=== PATIENT | female | born 1945 ===

== ENCOUNTER 2018-01-20 12:54 | Inpatient (IN) | payer MEDICARE ==
[~2018-01-20] VITALS: Ht 152.4 cm; Wt 72.3 kg
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
--- NOTE | ~2018-01-20 | PN ---
[place], [place] PROGRESS NOTE NAME: VIRGIL BUSTILLO UNIT #: [id number] ROOM: 315 DOCTOR: CHIDI HU MD BIRTHDATE: [birth year] DATE: 01/24/18 ADDENDUM 03/19/[address] HU: Above note reviewed. Agree with observations, recommendations, and overall treatment plan. CHIDI HU MD CM:PNTRANS 3 08 CHIDI HU MD 03/19/18801 ANGELICA HULL MIS.LLR
--- NOTE | ~2018-01-20 | PN ---
[place], [place] PROGRESS NOTE NAME: VIRGIL BUSTILLO UNIT #: [id number] ROOM: 315 DOCTOR: CHIDI HU MD BIRTHDATE: [birth year] DATE: 02/05/18 ADDENDUM 03/19/18803 DR. HU: Above note reviewed. Agree with observations, recommendations, and overall treatment plan. CHIDI HU MD CM:PNTRANS 3 4 CHDII HU MD 03/19/18804 ANGELICA HULL MIS.LLR
--- NOTE | ~2018-01-20 | PN ---
[place], [place] PROGRESS NOTE NAME: VIRGIL BUSTILLO UNIT #: [id number] ROOM: 315 DOCTOR: CHIDI HU MD BIRTHDATE: [birth year] DATE: 01/29/18 ADDENDUM 03/19/18803 DR. HU: Above note reviewed. Agree with observations, recommendations, and overall treatment plan. CHIDI HU MD CM:PNTRANS 3 2 CHIDI HU MD 03/19/18802 ANGELICA HULL MIS.LLR
--- NOTE | ~2018-01-20 | PR ---
[place], [place] PROGRESS NOTE NAME: VIRGIL BUSTILLO UNIT #: [id number] ROOM: 315 DOCTOR: ALONA JOHNSON MD BIRTHDATE: [birth year] DOS: 02/03/2018 SUBJECTIVE: The patient seen and spoke with the staff. Per staff, the patient is doing well. No behavioral problems or issues. Took her medications. Still some psychosis. The patient was pleasant and cooperative. She was in the day area. She reports doing good. Denied any problem with sleep or appetite. She said that she is taking her medication regularly and did not have any side effect from the medication. MENTAL STATUS EXAMINATION: Pleasant and cooperative. Described her mood as "good." Affect, mood congruent. Thought process goal directed. No flight of ideas, loosening of association. She denied auditory or visual hallucination. No overt delusion or paranoia noted. She denied suicidal ideation, intent, or plan. She also denied homicidal ideation, intent, or plan. PLAN: 1. Continue current medication and care. 2. Continue redirection. 3. Supportive care. 4. Encourage activities in groups. 5. Final medication management and discharge plan by the regular team. ALONA JOHNSON MD CM:PNTRANS [phone] ALONA JOHNSON MD 02/04/18 0539 interface
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
--- NOTE | ~2018-01-20 | PN ---
[place], [place] PROGRESS NOTE NAME: VIRGIL BUSTILLO UNIT #: [id number] ROOM: 315 DOCTOR: CHIDI HU MD BIRTHDATE: [birth year] DATE: 02/06/18 ADDENDUM 03/19/18803 DR. HU: Above note reviewed. Agree with observations, recommendations, and overall treatment plan. CHIDI HU MD CM:PNTRANS 3 2 CHIDI HU MD 03/19/18803 ANGELICA HULL MIS.LLR
--- NOTE | ~2018-01-20 | PR ---
[place], [place] PROGRESS NOTE NAME: VIRGIL BUSTILLO UNIT #: [id number] ROOM: 315 DOCTOR: CHIDI HU MD BIRTHDATE: [birth year] DOS: 01/28/2018 INTERVAL NOTE CHIEF COMPLAINT: "I'm not crazy, why don't you just call Sheriff [place]ell." SUMMARY OF THE VISIT: The patient was interviewed first before we went to the court hearing for her probate hearing. She minimized any issues during my initial conversation with her. 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 She most recently states that she was placed in a motel in [place] to monitor drug trafficking there. She very angrily chastised the event services manager stating that we needed to verify this with Kory Vences from the [facility]. She was very delusional and very upset. However, she did keep it under control and that she did not become physically aggressive towards anyone. MENTAL STATUS: She is alert and oriented with time gaps. Mood does seem to be still labile. Affect is inappropriate. She remains grossly delusional and very paranoid. PLAN: I will try to load her with Invega Sustenna 234 mg IM on 01/29/2018. We are still awaiting emergency guardianship. If this occurs and the patient refuses the IM, we will defer then to the guardian's position as to whether or not force medicine is advantageous or not. CHIDI HU MD CM:PNTRANS [phone] CHIDI HU MD 01/28/18 2248 interface
--- NOTE | ~2018-01-20 | PR ---
[place], [place] PROGRESS NOTE NAME: VIRGIL BUSTILLO UNIT #: [id number] ROOM: 315 DOCTOR: ALONA JOHNSNO MD BIRTHDATE: [birth year] DOS: 02/01/2018 PSYCHIATRIC PROGRESS NOTE SUBJECTIVE: The patient was seen and spoke with the staff. Per staff, the patient is still delusional, not taking medication. No behavior problems or issues. The patient was pleasant and cooperative. She was in her room. She said that she is doing "fine." She denied any mood or psychotic symptoms. She reported good sleep and appetite. MENTAL STATUS EXAMINATION: Pleasant, cooperative. Described her mood as "fine." Affect and mood congruent. Thought process goal directed. Disorganized time with a delusion. She denied auditory or visual hallucination, but seems to be responding to stimuli. She is paranoid. She denies suicidal ideation, intent or plan. She also denied homicidal ideation, intent or plan. Insight and judgment impaired. PLAN: 1. Continue current medication and care. 2. Continue redirection. 3. Supportive care. 4. Encourage activity in groups. ALONA JOHNSON MD CM:PNTRANS [id number] ALONA JOHNSON MD 02/03/18 1640 interface
--- NOTE | ~2018-01-20 | PR ---
[place], [place] PROGRESS NOTE NAME: VIRGIL BUSTILLO UNIT #: [id number] ROOM: 315 DOCTOR: CHIDI HU MD BIRTHDATE: [birth year] DOS: 02/04/2018 INTERVAL NOTE CHIEF COMPLAINT: "I do have a place to go. I don't know why you people don't believe me." SUMMARY OF THE VISIT: The patient was interviewed in the back end of the dining area where she sat on a couch. She engaged readily in conversation. She continues to report that she does have a place to go post-discharge. When I told her that we were informed this is not the case, she became very irate with me. She continues to be very much delusional and fixed in her believes. She is episodically compliant with her medications. She is not exhibiting, however, any side effects from them whatsoever. MENTAL STATUS: She is alert and oriented with time gaps. Mood does seem to be rather labile still and she turns on a dime as far as becoming very irritable and aggressive. She is grossly delusional still. PLAN: I will maintain her current psychotropic regimen. Still awaiting the final emergency guardianship paperwork to come through, so that we can potentially force an intermuscular long-acting decanoate prep, so that her blood levels maintain better and we can break the psychosis. Also, looking to discharge then into a long-term care community where she can have supervision and have her medicines and meals monitored. CHIDI HU MD CM:PNTRANS [phone] CHIDI HU MD 02/04/181934 interface
--- NOTE | ~2018-01-20 | PR ---
[place], [place] PROGRESS NOTE NAME: VIRGIL BUSTILLO UNIT #: [id number] ROOM: 315 DOCTOR: CHIDI HU MD BIRTHDATE: [birth year] DOS: 02/01/2018 CHIEF COMPLAINT: "I hope my diary is over." SUMMARY OF THE VISIT: The patient was interviewed as she sat at the end of the dining area. She engaged readily in very superficial conversation. Of note, she did not voice any conversation surrounding being part of the task force or that I was part of the coalition. She rather was more goal directed with things that were happening here and now. Nurses report that yesterday she had a flareup of symptoms and even plan for a moment that there was something with the water and that the water here was being tampered with. She has been episodically compliant with her medications and at least has been taking the oral Invega. She at times will identify the Exelon capsules and will refuse them. MENTAL STATUS: She is alert and oriented with significant time gaps. Mood does seem to be relatively euthymic. There are some anxious overtones and she is somewhat fretful. There is no hypomania or marcelino. I did not elicit any psychotic symptoms, but she was somewhat guarded and not forthcoming with her symptoms. PLAN: At the present time is to maintain her current psychotropics. I will not try to force an injection at this time as she is refusing it. We are still awaiting guardianship. If the guardianship comes through, I will talk to them about the possibility of instituting an Invega Sustenna, so that we can improve her overall compliance with medication and break the psychosis more effectively. CHIDI HU MD CM:PNTRANS [phone] CHIDI UH MD 02/01/18 1441 interface
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
--- NOTE | ~2018-01-20 | PN ---
[place], [place] PROGRESS NOTE NAME: VIRGIL BUSTILLO UNIT #: [id number] ROOM: 315 DOCTOR: CHIDI HU MD BIRTHDATE: [birth year] DATE: 01/25/18 ADDENDUM 03/19/18803 DR. HU: Above note reviewed. Agree with observations, recommendations, and overall treatment plan. CHIDI HU MD CM:PNTRANS 3 2 CHIDI HU MD 03/19/18802 ANGELICA HULL MIS.LLR
--- NOTE | ~2018-01-20 | PN ---
[place], [place] PROGRESS NOTE NAME: VIRGIL BUSTILLO UNIT #: [id number] ROOM: 315 DOCTOR: CHIDI HU MD BIRTHDATE: [birth year] DATE: 01/31/18 ADDENDUM 03/19/18803 DR. HU: Above note reviewed. Agree with observations, recommendations, and overall treatment plan. CHIDI HU MD CM:PNTRANS 3 3 CHIDI HU MD 03/19/18803 ANGELICA HULL MIS.LLR
--- NOTE | ~2018-01-20 | PR ---
[place], [place] PROGRESS NOTE NAME: VIRGIL BUSTILLO UNIT #: [id number] ROOM: 315 DOCTOR: CHIDI HU MD BIRTHDATE: [birth year] DOS: 01/23/2018 INTERVAL NOTE CHIEF COMPLAINT: "I need to see better, I can't see what I'm doing." SUMMARY OF THE VISIT: The patient was interviewed as she was completing a craft in the activity room. She was gluing stars on to a flag. The patient engaged in brief conversation, denying any issues. Nurses report, she has been more compliant with her medications of late and has been more cooperative. MENTAL STATUS: She is alert and oriented to person and place, but not time. Mood does seem to be trending towards euthymia. Affect is more appropriate. There are no symptoms of marcelino or hypomania. Memory has some gaps. PLAN: I will continue her current psychotropic regimen, engage in individual and fuller milieu activity, returning to the least restrictive environment when stable. CHIDI HU MD CM:PNTRANS 1129 02 CHIDI HU MD 01/23/182101 interface
[2018-01-20] MEDS ORDERED: ASPIR LOW81 MG PO (13:24)
[2018-01-20 16:01] VITALS: BP 114/78
[2018-01-20 16:23] VITALS: BP 114/78
[2018-01-20 19:10] VITALS: BP 130/70
[2018-01-20 20:00] VITALS: BP 130/70
[2018-01-21 06:40] LABS: BASO # 0.1 10*3/uL (0.0-0.1); BASO % 1.3 % (0.0-1.0); EOS # 0.1 10*3/uL (0.0-0.4); EOS % 2.6 % (1.0-4.0); HEMOGLOBIN 11.8 g/dl (12.0-16.0); LYMPH # 2.1 10*3/uL (1.3-4.4); LYMPH % 44.7 % (27.0-41.0); MEAN CELL VOLUME 87.5 fl (81.0-99.0); MEAN CORPUSCULAR HGB 27.9 pg (27.0-31.0); MEAN CORPUSCULAR HGB CONC 31.9 g/dl (33.0-37.0); MEAN PLATELET VOLUME 10.2 fl (9.6-12.3); MONO # 0.4 10*3/uL (0.1-1.0); MONO % 8.3 % (3.0-9.0); NEUT % 42.9 % (47.0-73.0); PLATELET COUNT AUTOMATED 246 10*3/uL (130-400); RED BLOOD COUNT 4.23 10*6/uL (4.10-5.10); RED CELL DISTRI WIDTH 15.9 % (0-14.5); WHITE BLOOD COUNT 4.7 10*3/uL (4.8-10.8)
[2018-01-21 06:58] LABS: ALBUMIN 2.7 gm/dl (3.1-4.5); ALKALINE PHOSPHATASE 86 U/L (45-117); BUN 16 mg/dl (7-24); CHLORIDE 115 mmol/L (98-107); CHOLESTEROL 211 mg/dL (<200); CREATININE 0.83 mg/dL (0.55-1.02); HDL CHOLESTEROL 36 mg/dl (40-60); LDL CHOLESTEROL 137 mg/dL (9-159); POTASSIUM 3.5 mmol/L (3.5-5.1); SGOT/AST 29 IU/L (3-35); SGPT/ALT 31 U/L (12-78); SODIUM 151 mmol/L (136-145); TOTAL PROTEIN 5.4 gm/dL (6.4-8.2); TRIGLYCERIDES 190 mg/dl (<150); VLDL CHOLESTEROL 38 mg/dL (6-40)
[2018-01-21 07:58] VITALS: BP 111/68
[2018-01-21 08:26] LABS: VITAMIN D, 25-HYDROXY 7.4 ng/mL (30-100)
[2018-01-21 19:45] VITALS: BP 112/65
[2018-01-22 07:35] VITALS: BP 117/58
[2018-01-22 07:39] LABS: BUN 17 mg/dl (7-24); CHLORIDE 112 mmol/L (98-107); CREATININE 1.04 mg/dL (0.55-1.02); POTASSIUM 3.1 mmol/L (3.5-5.1); SODIUM 147 mmol/L (136-145)
[2018-01-22 07:43] LABS: FREE T4 0.85 ng/dl (0.76-1.46)
[2018-01-22 14:54] LABS: BILIRUBIN NEGATIVE (NEGATIVE); BLOOD NEGATIVE (NEGATIVE); CLARITY CLEAR (CLEAR); COLOR YELLOW (YELLOW); GLUCOSE NEGATIVE (NEGATIVE); KETONE NEGATIVE (NEGATIVE); LEUKO ESTERASE 2+ (NEGATIVE); NITRITE NEGATIVE (NEGATIVE); PH 5.5 (5.0-9.0); UROBILINOGEN 0.2 E.U./dl (0.2-1.0)
[2018-01-22 20:08] VITALS: BP 111/54
[2018-01-23 07:39] VITALS: BP 118/68
[2018-01-23 19:06] VITALS: BP 124/75
[2018-01-24 07:53] VITALS: BP 140/74
[2018-01-24 19:36] VITALS: BP 109/58
[2018-01-25 07:40] VITALS: BP 134/60
[2018-01-25 07:42] VITALS: BP 134/60
[2018-01-25 19:24] VITALS: BP 116/60
[2018-01-26 07:42] VITALS: BP 121/68
[2018-01-26 20:26] VITALS: BP 112/59
[2018-01-27 07:45] VITALS: BP 108/70
[2018-01-27 20:00] VITALS: BP 119/58
[2018-01-28 07:47] VITALS: BP 127/58
[2018-01-28 19:50] VITALS: BP 132/63
[2018-01-29 07:55] VITALS: BP 130/64
[2018-01-29 20:04] VITALS: BP 132/66
[2018-01-30 07:58] VITALS: BP 127/74
[2018-01-30 20:11] VITALS: BP 125/55
[2018-01-30 20:37] VITALS: BP 125/55
[2018-01-31 07:24] VITALS: BP 106/50
[2018-01-31 20:00] VITALS: BP 121/78
[2018-02-01 08:26] VITALS: BP 123/71
[2018-02-01 19:44] VITALS: BP 110/62
[2018-02-02 07:42] VITALS: BP 119/75
[2018-02-02 20:12] VITALS: BP 110/59
[2018-02-03 07:29] VITALS: BP 130/64
[2018-02-03 19:53] VITALS: BP 140/66
[2018-02-04 07:53] VITALS: BP 133/73
[2018-02-04 20:19] VITALS: BP 123/57
[2018-02-05 07:55] VITALS: BP 142/66
[2018-02-05 20:12] VITALS: BP 135/64
[2018-02-06 08:23] VITALS: BP 119/75
[2018-02-06] MEDS ORDERED: ATORVASTATIN CA20 M1 PO (10:17)
[2018-02-06] MEDS ORDERED: B121000 MCG/1 IM (10:17)
[2018-02-06] MEDS ORDERED: VITAMIN D50000 UNIT PO (10:17)
[2018-02-06] MEDS ORDERED: RIVASTIGMINE T1.5 M1 PO (10:53)
[2018-02-06] MEDS ORDERED: PALIPERIDONE ER6 MG PO (10:53)
== END 2018-02-06 11:30 | DRG 885 ==
LOC: 3N 12:54 → EDBD 15:49 → 3N 15:49
PROVIDERS: Internal Medicine; Psychiatry & Neurology Psychiatry
PROC: 0HBRXZZ Excision of Toe Nail, External Approach (ICD-10-PCS; principal; 2018-02-01)
DX: F23 Brief psychotic disorder (principal); E43 Unspecified severe protein-calorie malnutrition; E87.0 Hyperosmolality and hypernatremia; D72.810 Lymphocytopenia; D64.9 Anemia, unspecified; B35.1 Tinea unguium; R73.9 Hyperglycemia, unspecified; E78.2 Mixed hyperlipidemia; E55.9 Vitamin D deficiency, unspecified; E66.9 Obesity, unspecified; Z91.14 Patient's other noncompliance with medication regimen; Z98.51 Tubal ligation status; Z68.31 Body mass index [BMI] 31.0-31.9, adult; Z79.82 Long term (current) use of aspirin

== ENCOUNTER 2019-03-21 20:07 | Inpatient (IN) | payer MEDICARE, MEDICAID ==
[~2019-03-21] VITALS: Ht 152.4 cm; Wt 75.8 kg
[~2019-03-21 20:07] MED LIST: ASPIR LOW81 MG PO; ATORVASTATIN CA20 M1 PO; B121000 MCG/1 IM; PALIPERIDONE ER6 MG PO; RIVASTIGMINE T1.5 M1 PO; VITAMIN D50000 UNIT PO
[2019-03-21] MEDS ORDERED: Synthroid,Levo50 MCG PO (20:23)
--- NOTE | 2019-03-22 02:11 | NUR ---
KENYVIRGIL a 74 year old F admitted via ambulance from the [facility] as a emergency 72 hr. hold admission. Arrived on unit at 0211. ALLERGIES: NKA. Vital signs are: 97.3-92-18 136/68. The client signed the following forms with stated understanding: Authorization For The Release of Medical Information, Clothing List, Consent and Release Forms/Receipt of Rights, Acknowledgement of Advance Directive Information, Behavioral Health Consent Form, and Informed Consent of Medications. Admitted under the services [facility]. A search was conducted and hazardous articles were removed. Client was oriented to the unit. PATIENT DID NOT SIGN VOLUNTARY ADMISSION DUE TO PINKSLIP STATUS. ROSENDO BARRY PATIENT ALERT TO PERSON AND APPROXIMATE PLACE; CONFUSION AND ST/LT MEMORY DEFICITS NOTED. ESCORTED ON UNIT VIA SCRETCHER BY ASI AND SECURITY. CALM AND COOPERATIVE WITH ADMISSION AND INTERVIEW QUESTIONS.
--- NOTE | 2019-03-22 02:15 | NUR ---
Called and notified Dr. Nguyen regarding patient being admitted to floor and asked which hospitalist to place order of consult under. Dr. Nguyen said to place the order under Dr. Loera.
[2019-03-22 02:33] VITALS: BP 136/68
[2019-03-22 02:37] VITALS: BP 136/68
--- NOTE | 2019-03-22 02:40 | NUR ---
DR. JENNINGS ON FLOOR TO ASSESS PT, UPDATE PROVIDED.
--- NOTE | 2019-03-22 03:39 | NUR ---
DR. BARRON NOTED OF URINE RESULTS FROM [facility] AND PRESCRIPTION OF KEFLEX SENT FROM [facility] TO BE STARTED HERE. DR. BARRON STATED TO GET A NEW URINE AND WILL BE TREATED ACCORDINGLY THEN.
--- NOTE | 2019-03-22 06:06 | NUR ---
PATIENT MONITORED ON Q15 MINUTE CHECKS THROUGHOUT THE NIGHT. PT NOTED TO HAVE SLEPT APPROXIMATELY 1.5 HOURS. PATIENT DID NOT GO TO SLEEP UNTIL AROUND 0330 DUE TO GETTING ADMITTED SO LATE.
[2019-03-22 07:38] LABS: ALBUMIN 3.5 gm/dl (3.1-4.5); ALKALINE PHOSPHATASE 84 U/L (45-117); BUN 20 mg/dl (7-24); CHLORIDE 109 mmol/L (98-107); CHOLESTEROL 198 mg/dL (<200); CREATININE 0.98 mg/dL (0.55-1.02); HDL CHOLESTEROL 51 mg/dl (40-60); LDL CHOLESTEROL 117 mg/dL (9-159); SGOT/AST 11 IU/L (3-35); SGPT/ALT 25 U/L (12-78); SODIUM 141 mmol/L (136-145); TOTAL PROTEIN 6.6 gm/dL (6.4-8.2); TRIGLYCERIDES 152 mg/dl (<150); VLDL CHOLESTEROL 30 mg/dL (6-40)
[2019-03-22 07:55] VITALS: BP 121/49
[2019-03-22 08:05] LABS: VITAMIN D, 25-HYDROXY 17.5 ng/mL (30-100)
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
--- NOTE | 2019-03-22 12:19 | NUR ---
AM GROUP/EXERCISES/BINGO! PT CHOSE NOT TO ATTEND OR PARTICIPATE IN GROUP BUT TO REMAIN IN BED SLEEPING AT THIS TIME. PT WILL CONTINUE TO BE ENCOURAGED TO ATTEND AN DPARTICIPATE IN FUTURE GROUP SESSIONS.
--- NOTE | 2019-03-22 15:46 | NUR ---
PM GROUP/ART/FOOTBALL PT RESTING IN BED AT THIS TIME. PT CHOSE NOT TO ATTEND GROUP AND WILL CONTINUE TO BE ENCOURAGED TO ATTEND AND PARTICIPATE IN FUTURE GROUP SESSIONS.
[2019-03-22 20:00] VITALS: BP 121/59
--- NOTE | 2019-03-23 02:23 | NUR ---
P- ST/LT MEMORY DEFICITS NOTED. MED COMPLIANCE ISSUE. EUYTHMIC. I- REORIENT WHEN CONFUSION NOTED. 1:1 INTERACTION WITH EMOTIONAL SUPPORT PROVIDED. PROVIDE MEDICATIONS ON TIME WITH EDUCATION ON EACH. ENCOURAGE COMPLIANCE AND EDUCATE ON THE IMPORTANCE FOR INDIVIDUAL CASE. R- ALERT AND ORIENTED X3. ST/LT MEMORY DEFICITS REMAINS, REORIENTATION EFFECTIVE. PATIENT STATED THAT SHE DID NOT NEED HER MEDICATION, ONLY HER ONE MEDICAL MED. AFTER MUCH ENCOURAGEMENT AND EDUCATION PROVIDED, PT DID TAKE HER MEDICCATIONS. DENIES HALLUCINATIONS, SI/HI, OR PAIN. NO S/S OF INTERACTING WITH INTERNAL STIMULI. NO DELUSIONAL THOUGHT PROCESS NOTED. NO S/S OF DISTRESS, RESPS EVEN AND UNLABORED ON ROOM AIR. GAIT STEADY WHILE AMBULATING. ATE HS SNACK. INTERACTIVE WITH STAFF AND PEERS. P- REORIENT WHEN CONFUSION IS NOTED. PROVIDE MEDICATIONS ON TIME WITH EDUCATION ON EACH. ENCOURAGE COMPLIANCE AND EDUCATE ON PATIENTS INDIVIDUAL NEEDS. 1:1 INTERACTION WITH EMOTIONAL SUPPORT PROVIDED WHEN NECESSARY. Q15 MINUTE CHECKS MAINTAINED FOR SAFETY.
--- NOTE | 2019-03-23 03:10 | NUR ---
24 HR chart check completed.
--- NOTE | 2019-03-23 05:25 | NUR ---
PATIENT MONITORED ON Q15 MINUTE SAFETY CHECKS THROUGHOUT THE NIGHT. PATIENT NOTED TO HAVE SLEPT APPROXIMATELY 7 HOURS UNINTERRUPTED.
[2019-03-23 07:51] VITALS: BP 106/45
[2019-03-23 08:44] LABS: BASO # 0.1 10*3/uL (0.0-0.1); BASO % 0.7 % (0.0-1.0); EOS # 0.2 10*3/uL (0.0-0.4); EOS % 1.9 % (1.0-4.0); HEMATOCRIT 42.5 % (37.0-47.0); HEMOGLOBIN 13.6 g/dl (12.0-16.0); LYMPH # 4.7 10*3/uL (1.3-4.4); LYMPH % 56.3 % (27.0-41.0); MEAN CELL VOLUME 87.3 fl (81.0-99.0); MEAN CORPUSCULAR HGB 27.9 pg (27.0-31.0); MEAN PLATELET VOLUME 9.3 fl (9.6-12.3); MONO # 0.5 10*3/uL (0.1-1.0); MONO % 5.4 % (3.0-9.0); NEUT % 35.6 % (47.0-73.0); PLATELET COUNT AUTOMATED 327 10*3/uL (130-400); RED BLOOD COUNT 4.87 10*6/uL (4.10-5.10); RED CELL DISTRI WIDTH 13.8 % (0-14.5); WHITE BLOOD COUNT 8.4 10*3/uL (4.8-10.8)
--- NOTE | 2019-03-23 12:24 | NUR ---
AM GROUP/BIRDHOUSES/MUSIC PT ATTENDED AND PARTICIPATED IN ALL GROUP ACTIVITY'S. PT PLEASNAT AND ON TASK WITH NO DELUSIONS OR ASSAULTIVE BEHAVIORS EXPRESSED. PT WILL CONTINUE TO ATTEND AN DPARTICIPATE IN FUTURE GROUP SESSIONS.
--- NOTE | 2019-03-23 18:53 | NUR ---
REFUSED PSYCH MEDS TODAY. PT STATED "I AM LEAVING. AND YOU GUYS ARE NOT TAKING ME TO COURT. I AM NOT CRAZY. BALJINDER HU" PT NOT REDIRECTABLE AT THIS TIME. SEE [facility] FLOWSHEET FOR SPECIFIC MONITORING. Q15 MINUTE SAFETY CHECKS MAINTAINED.
[2019-03-23 20:00] VITALS: BP 117/71
--- NOTE | 2019-03-23 22:06 | NUR ---
24 HR chart check completed.
--- NOTE | 2019-03-24 01:28 | NUR ---
P-ISOLATIVE I-PROVIDE VERBAL INTERVENTION FOR EMOTIONAL SUPPORT, ENCOURAGE SOCIALIZATION & PARTICIPATION IN UNIT ACTIVITIES. ADMINISTER MEDICATIONS, MONITOR SLEEP R-DIANA IS MILDLY DEPRESSED TO EUTHYMIC. ALERT & ORIENTED X 3 WITH MEMORY DEFICITS. HAS REMAINTED ISOLATIVE IN HER ROOM WITH GUARDED INTERACTIONS. STATED SHE IS FEELING "JUST FINE". PLEASANT & SMILING. NO DELUSIONAL STATEMENTS VOICED. NO AGITATION. REQUESTED TO SHOWER & DID SO INDEPENDENTLY. COMPLIANT TAKING MEDS WHOLE. P-CONTINUE TO MONITOR & PROVIDE PHYSICAL ASSISTANCE & EMOTIONAL SUPPORT NEEDED.
--- NOTE | 2019-03-24 04:56 | NUR ---
PT HAS SLEPT PAST 2214 WITH 1 BRIEF AWAKENING TO GO TO THE BATHROOM
[2019-03-24 08:13] VITALS: BP 128/79
--- NOTE | 2019-03-24 09:03 | NUR ---
PHYSICAL THERAPY Nursing screen received and chart reviewed. Physical therapy referral received. Thank you. Rachel Davis,PT,DPT.
--- NOTE | 2019-03-24 09:22 | NUR ---
PHYSICAL THERAPY Physical therapy evaluation offered and screen complete. Patient is independent with ambulation throughout BHU, per nursing. Continue with mobility throughout stay. No physical therapy needs at this time. Discharge PT order. Thank you. Rachel Davis,PT,DPT.
--- NOTE | 2019-03-24 09:30 | NUR ---
Occupational therapy orders received and chart reviewed. Per discussion with nursing, patient is ambulatory and self-feeds. Per nursing notes, patient is independent in ADLs. Patient occupational therapy orders to be discharged at this time secondary to independent functional status. If there is a change in functional status, please send occupational therapy orders. Thank you for the referral. Tisha Cline OTR/L
--- NOTE | 2019-03-24 10:42 | NUR ---
DR PERALTA ON UNIT TO ASSESS PT
--- NOTE | 2019-03-24 11:03 | NUR ---
P: MEDICATION NONCOMPLIANCE I: ENCOURAGED MEDICATION COMPLIANCE, PROVIDED MEDICATION EDUCATION, EXPLAINED PROS AND CONS OF EACH MEDICATION ON PT'S MAR. MONITORED BEHAVIORS WITH 15 MINUTE SAFETY CHECKS. ENCOURAGED PARTICIPATION IN GROUP. R: PT REFUSED EXELON PATCH, HOWEVER TOOK ALL OTHER MEDICATIONS. REFUSED TO ATTEND GROUP ACTIVITIES P: CONTINUE TO ENCOURAGE MEDICATION COMPLAINCE, PROVIDE MEDICATION EDUCATION ON NEW MEDICATIONS, CONTINUE TO MONITOR BEHAVIORS WITH Q15 MINUTE SAFETY CHECKS. PROVIDE 1:1 FOR THERAPEUTIC COMMUNICATION AND EMOTIONAL SUPPORT.
--- NOTE | 2019-03-24 12:24 | NUR ---
AM GROUP PT DID NOT ATTEND MORNING GROUP THERAPY. PT WAS IN BED RESTING
--- NOTE | 2019-03-24 17:05 | NUR ---
PM GROUP/MUSIC/ART PT ATTENDED AND PARTICIPATED IN GROUP BY PAINTING A BIRDHOUSE. PT BECAME FRUSTRATED OVER THE COLOR OF HERNANDEZ THIS STAFF MIXED FOR HER INSISTING IT IS NOT HERNANDEZ BUT BLACK. THIS STAFF THEN REMIXED IT TO BE ALMOST THE SAME COLOR THEN PT BEGAN PAINTING. PT DID NOT BECOME ASSAULTIVE OR COMBATIVE AT THIS TIME BUT WAS LABILE AT TIMES. PT WILL CONTINUE TO ATTEND AND PARTICIPATE IN FUTURE GROUP SESSIONS.
[2019-03-24 19:12] VITALS: BP 130/80
--- NOTE | 2019-03-24 20:30 | NUR ---
EVENING/RIDDLES/GAMES PT CHOSE NOT TO ATTEND BUT TO REMAIN IN BED SLEEPING AT THIS TIME. PT WILL CONTINUE TO BE ENCOURAGED OT ATTEND AND PARTICIPATE IN FUTURE GROUP SESSIONS.
--- NOTE | 2019-03-24 21:28 | NUR ---
REFUSED RISPERIDOL. SCREAMING SHE IS NOT DEPRESSSED AND SHE IS HERE FOR HER SUGAR. DENIES DR HU IS HER PSYCHIATRIST. YELLING AND SCREAMING. DIFFICULTY TO REDIRECT. STATES SHE IS LEAVING BUT LAID DOWN AND IS CURRENTLY QUIET
--- NOTE | 2019-03-25 03:02 | NUR ---
24 HR chart check completed.
[2019-03-25 07:41] VITALS: BP 110/58
--- NOTE | 2019-03-25 07:54 | NUR ---
PT AWAKE AND ALERT. CHANGING CLOTHES AT THIS TIME GETTING READY FOR BREAKFAST. RESPS EASY AND EVEN ON ROOM AIR. NO DISTRESS NOTED.
--- NOTE | 2019-03-25 07:54 | NUR ---
ON UNIT TO SEE PT AT THIS TIME. UPDATE GIVEN.
--- NOTE | 2019-03-25 08:30 | NUR ---
Treatment Plan meeting with Dr. Koroma, RN, AT, SW and Quality Assurance Representative. Plan for discharge nex week. Pt. came to [facility] from [facility]. Will reach out to facility today to discuss discharge Planning.
--- NOTE | 2019-03-25 09:17 | NUR ---
VERÓNICA RAW HIDE TRIMMER ON UNIT TO SEE PT AT THIS TIME.
--- NOTE | 2019-03-25 11:44 | NUR ---
AM GROUP/POSITIVITY PT WAS LATE IN COMING TO GROUP AND SAT AT THE BACK OF THE ROOM. PT CHOSE NOT TO PARTICIPATE BUT OBSERVED AND LISTENED TO THE GROUP DISCUSSION. PT WAS CALM AND QUIET. PT EXPRESSED NO DELUSIONS OR AGGRESSIVENESS WHILE IN GROUP
--- NOTE | 2019-03-25 11:47 | NUR ---
Spoke with [facility] For [facility]. Pt. is LTC at facility and will return at discharge.
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
--- NOTE | 2019-03-25 13:17 | NUR ---
SHIFT CHART CHECK COMPLETED.
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
--- NOTE | 2019-03-25 15:40 | NUR ---
PM GROUP/ART AND MUSIC PT ATTENDED AND PARTICIPATED IN AFTERNOON GROUP THERAPY. PT WAS SOCIALABLE AND ON TASK. PT EXPRESSED NO DELUSIONAL IDEATIONS NOR EXHIBITED ANY AGITATION OR AGGRESSION.
--- NOTE | 2019-03-25 16:00 | NUR ---
Received Call From Alexandria Baron at [facility]. She cannot find in her system where Patient had GuardianShip Paperwork Filed. She will inquire further and get back to [facility].
[2019-03-25 19:13] VITALS: BP 113/68
--- NOTE | 2019-03-25 20:02 | NUR ---
24 HR chart check completed.
--- NOTE | 2019-03-25 21:55 | NUR ---
P-ISOLATIVE I-PROVIDE VERBAL INTERVENTION FOR EMOTIONAL SUPPORT, ENCOURAGE SOCIALIZATION & PARTICIPATION IN UNIT ACTIVITIES. ADMINISTER MEDICATIONS, MONITOR SLEEP R-MOOD IS MILDLY DEPRESSED TO EUTHYMIC. ALERT & ORIENTED TO PERSON, PLACE & TIME BUT NOT SITUATION. MEMORY DEFICITS. DID COME TO THE DINING ROOM FOR SNACK BUT KEPT TO HERSELF & WHEN DONE RETURNED TO HER ROOM. PLEASANT & SMILING WITH STAFF BUT GUARDED. NO AGITATION OR YELLING OUT. STATED SHE IS FEELING "GOOD". NO DELUSIONAL STATEMENTS VOICED. COMPLIANT TAKING MEDS WHOLE. P-CONTINUE TO MONITOR & PROVIDE PHYSICAL ASSISTANCE & EMOTIONAL SUPPORT NEEDED.
--- NOTE | 2019-03-26 05:32 | NUR ---
PT HAS SLEPT PAST 0000 WITH 1 BRIEF AWAKENINIG TO GO TO THE BATHROOM.
[2019-03-26 08:06] VITALS: BP 139/64
--- NOTE | 2019-03-26 08:30 | NUR ---
Treatment Plan meeting with Dr. Koroma, RN, AT, SW and Fuel Dock Attendant. Plan for discharge next week. Pt. will return to [facility].
--- NOTE | 2019-03-26 08:36 | NUR ---
PATIENT LAYING IN BED WITH EYES CLOSED AT THIS TIME. RESPS EVEN AND UNLABORED ON ROOM AIR. NO S/S OF DISTRESS NOTED.
--- NOTE | 2019-03-26 09:43 | NUR ---
PATIENT TOOK ALL PO MEDICATIONS AND REFUSED TOPICAL EXELON PATCH. EDUCATION AND MUCH ENCOURAGEMENT PROVIDED. EDUCATED ON THE IMPORTANCE FOR MEDICATION COMPLIANCE ON PATIENTS INDIVIDUAL CASE. PATIENT REFUSED, ENCOURAGEMTN/EDUCATION INEFFECTIVE.
--- NOTE | 2019-03-26 11:49 | NUR ---
AM GROUP PT ATTENDED AND PARTICIPATED IN MORNING GROUP THERAPY. PT WAS ON TASK AND SOCIALABLE. PT EXHIBITED NO AGITATION OR AGGRESSION WHILE IN GROUP
--- NOTE | 2019-03-26 12:05 | NUR ---
P- MOOD LABILE. REFUSE SOME OF MEDICATIONS. ALERT AND ORIENTED TO PERSON, PLACE, AND APPROXIMATE TIME. UNAWARE OF WHY SHE IS HERE. PREOCCUPIED WITH LEAVING. ISOLATIVE TO SELF. I- REORIENT AND PRESENT REALITY TO TIME AND SITUATION WHEN CONFUSION IS NOTED. 1:1 INTERACTION WITH EMOTIONAL SUPPORT AND VENTILATION OF FEELINGS PROVIDED. ASSESS MOOD, ORIENTATION, SI/HI, OR PAIN. PROVIDE MEDICATIONS ON TIME WITH EDUCATION ON EACH. ENCOURAGE MEDICATION COMPLIANCE FOR PATIENTS INDIVIDUAL CASE. ENCOURAGE TO ATTEND/PARTICIPATE IN GROUP THERAPIES. ENCOURAGE INTERACTION WITH PEERS AND STAFF. PROVIDE LOW STIMULI/LIGHT ENVIRONMENT. PROVIDE COPING TECHNIQUES. R- REORIENTATION EFFECTIVE AT TIMES. PATIENT BELIEVES THAT SHE IS HERE BECAUSE THE SKILLED NURSING THOUGHT SHE NEEDED TO BE HERE. PATIENT REFUSED EXELON PATCH THIS MORNING, TOOK ALL OTHER MEDICATIONS. REFUSED EVEN WITH MUCH ENCOURAGEMENT AND EDUCATION. 1:1 INTERACTION EFFECTIVE. PATIENT YELLING OUT AND STATING THAT SHE DOES NOT NEED TO BE HERE, SHE NEEDS TO GET HOME AND NOT BACK TO THE NURSING FACILITY, AND THAT SHE DOES NEED ANY OF THESE "MIND ALTERING" MEDICATIONS. 1:1 INTERACTION, LOW STIMULI ENVIRONMENT AND DEEP BREATHING EFFECTIVE. PATIENT REMAINS PREOCCUPIED ON BEIEVING THAT SHE HAS A HOME TO GO TO INSTEAD OF THE NURSING FACILITY THAT SHE WAS AT. REORIENTATION AND REALITY PRESENTATION INEFFECTIVE. DENIES HALLUCINATINOS, SI/HI, OR PAIN. NO S/S OF INTERACTING WITH INTERNAL STIMULI. NO S/S OF DISTRESS NOTED. RESPS EVEN AND UNLABORED ON ROOM AIR. ATTEND AND PARTICIPATE IN GROUP THERAPIES. GAIT STEADY WHILE AMBULATING. EATING AND DRINKING ADEQUATELY. INTERACTIVE WHEN SPOKEN TO FIRST. MOOD REMAINS LABILE. P- 1:1 INTERACTION WITH EMOTIONAL SUPPORT PROVIDED WHEN NECESSARY. REORIENT AND PRESENT REALITY FREQUENTLY WHEN CONFUSION TO TIME AND SITUATION IS NOTED. PROVIDE MEDICATIONS ON TIME WITH EDUCATION ON EACH. ENCOURAGE MEDICATION COMPLIANCE. PROVIDE LOW STIMULI ENVIRONMENT AND COPING TECHNIQUES WHEN YELLING OUT/IRRITABLE. Q15 MINUTE CHECKS MAINTAINED FOR SAFETY.
--- NOTE | 2019-03-26 12:28 | NUR ---
Shift chart check completed.
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
--- NOTE | 2019-03-26 14:38 | NUR ---
Notified [facility] Liason that patient would require discharge tommorow due to not signing voluntary admission form. She states that she will notify the building.
--- NOTE | 2019-03-26 15:40 | NUR ---
1:[address] CLERK PT WAS ASKED TO COME AND SPEAK WITH THIS MICROWAVE OVEN ASSEMBLER AND THE DEPUTY COURT CLERK. PT WAS DEFENSIVE AND WARY AT THE REQUEST TO COME TO A QUIET ROOM TO SPEAK. THE PURPOSE WAS TO EXPLAIN TO THE PT THE PROCESS OF SIGNING IN OPPOSED TO COURT ACTION. PT WAS VERY DELUSIONAL AND INSISTED THAT SHE WAS NOT GOING BACK TO [place], THAT WE WERE NOT GOING TO PUT HER IN A SENIOR CARE AND THAT SHE WAS RETURNING TO HER HOME. PT WAS ASSURED THAT WE WERE THERE TO ADVOCATE FOR HER AND TRY TO FIND THE BEST SOLUTION. PT BECAME IRATE AND BEGAN YELLING, SWEARING AND DEMANDING THAT THE DEPUTY COURT CLERK CONTACT HER DOCTOR AND NOT THAT "BITCH" DOCTOR HU. DEPUTY COURT CLERK AGAIN TRIED TO EXPLAIN WHAT THE PROCESS WOULD BE IF SHE REFUSED TO SIGN IN TO WHICH THE PT JUMPED UP, YELLED, "YOU BOTH ARE COALITION BITCHES" AND STORMED OUT THE DOOR. NURSING WAS INFORMED OF THE CONVERSATION AND THAT PT STATED, "THE NURSES THIS MORNING TOLD ME THAT I WAS GOING HOME".
[2019-03-26 19:42] VITALS: BP 103/72
--- NOTE | 2019-03-27 03:19 | NUR ---
NO ADVERSE BEHAVIORS NOTED THIS SHIFT. PATIENT ALERT AND ORIENTED X3 WITH CONFUSION. PT CALM, ISOLATIVE TO ROOM AND BED SINCE BEGINNING OF SHIFT, ONLY COMING DOWN FOR HS SNACK. DURING 1:1 PATIENT WAS JOKING APPROPRIATELY WITH STAFF AND STATED SHE WAS DOING GOOD TODAY. MEDICATION COMPLIANT WITHOUT DIFFICULTY AFTER REVIEW. PT DENIES SI/HI AND HALLUCINATIONS, NO NOTED RESPONDING TO INTERNAL STIMULI. NO PARANOIA/DELUSIONS OBSERVED. NO PHYSICAL COMPLAINTS VOICED . PT CURRENTLY LAYING DOWN WITH EYES CLOSED, RESPIRATIONS EASY AND REGULAR, NO SIGNS OR SYMPTOMS OF DISTRESS NOTED. PLAN IS TO CONTINUE TO MONITOR MOOD AND BEHAVIORS. PROVIDE 1:1 WITH EMOTIONAL SUPPORT NEEDED. ENCOURAGE MEDICATION COMPLIANCE AND EDUCATE. MAINTAIN Q 15 MIN CHECKS.
--- NOTE | 2019-03-27 05:10 | NUR ---
24 HOUR CHART CHECK COMPLETED.
--- NOTE | 2019-03-27 06:10 | NUR ---
PATIENT OBSERVED ON Q 15 MIN CHECKS TO HAVE SLEPT APPROX 7 HOURS WITH X2 BRIEF AWAKENINGS DURING STAFF CHECKS, NO SIGNS OR SYMPTOMS OF DISTRESS NOTED.
[2019-03-27 07:46] VITALS: BP 117/56
--- NOTE | 2019-03-27 08:43 | NUR ---
PT RESTING QUIETLY IN BED AT THIS TIME, RESPS EASY AND EVEN ON ROOM AIR. NO DISTRESS NOTED. ATE 100% OF BREAKFAST WITH ADEQUATE FLUID INTAKE. ON UNIT TO SEE PT AT THIS TIME, UPDATE GIVEN.
--- NOTE | 2019-03-27 08:44 | NUR ---
Treatment Plan meeting with Dr. Koroma RN AT, and Chemical Research Worker. Plan for discharge today. Pt. to return to [facility].
[2019-03-27] MEDS ORDERED: RIVASTIGMINE1 EACH T (08:52)
[2019-03-27] MEDS ORDERED: VITAMIN D5000 UNI1 PO (08:52)
[2019-03-27] MEDS ORDERED: B121000 MCG/1 IM (08:52)
[2019-03-27] MEDS ORDERED: RISPERIDONE M-TA1 MG BC (08:52)
--- NOTE | 2019-03-27 08:56 | NUR ---
CALL PLACED TO , MADE AWARE OF DISCHARGE FOR TODAY AT 10:30AM.
[2019-03-27] MEDS ORDERED: KEFLEX 500 MG E2 CAP PO (08:59)
--- NOTE | 2019-03-27 09:16 | NUR ---
VERBAL ORDER RECIEVED FROM TO GIVE PRN GEODON 20MG IM AND ATIVAN 2MG IM AT 10:00AM TODAY IN ANTICIPATION OF DISCHARGE SCHEDULED FOR 10:30AM. FREIGHT ROUTER AWARE.
--- NOTE | 2019-03-27 09:30 | NUR ---
P- ISOLATIVE TO ROOM. EPISODICALLY NON COMPLIANT WITH MEDICATIONS. NO AGGRESSIVE BEHAVIORS. PT DENIES SI/HI, INTENT OR PLAN. I- ORIENTATION, MOOD AND BEHAVIOR ASSESSED. ASSESSED PT FOR SI/HI, INTENT OR PLAN. ASSESSED PT FOR S/S HALLUCINATIONS, PARANOIA AND/OR DELUSIONS. MEDICATIONS ADMINISTERED PER PHYSICIAN'S ORDERS. ASSISTANCE WITH ADL CARE PROVIDED NEEDED. ENCOURAGED PT TO ATTEND AND PARTICIPATE IN [facility] GROUPS AND ACTIVITIES. R- PT IS ALERT AND ORIENTED TO PERSON, PLACE, APPROXIMATE TIME. NOT SITUATION. RESPS EASY AND EVEN ON ROOM AIR. MOOD APPEARS STABLE, SLIGHTLY IRRITABLE AT TIMES, HOWEVER, PT HAS NOT DISPLAYED ANY AGGRESSIVE BEHAVIORS. PT DENIES SI/HI, INTENT OR PLAN. PT DENIES HALLUCINATIONS, NO RESPONSE TO INTERNAL STIMULI NOTED. PT REPORTS SHE IS FEELING BETTER AND STATES "YEAH, I'M NOT HUNGRY NOW". PT CONTINUES TO BE EPISODICALLY NONCOMPLIANT WITH MEDICATIONS, PT TOOK ONLY KEFLEX THIS AM WITH MORNING MED PASS. IS AWARE. PT REMAINS ISOLATIVE TO ROOM, DECLINES TO PARTICIPATE IN GROUPS/ACTIVITIES. P- PLAN TO CONTINUE CURRENT TREATMENT, CONTINUE TO MONITOR MOOD AND BEHAVIORS, PROVIDE APPROPRIATE REORIENTATION, REDIRECTION AND 1:1 NEEDED. CONTINUE TO ENCOURAGE MEDICATION COMPLIANCE WELL GROUP ATTENDANCE AND PARTICIPATION. ASSIST PT IN PREPARING FOR DISCHARGE TODAY.
--- NOTE | 2019-03-27 10:00 | NUR ---
Discharge Paperwork Faxed to [facility]. Transportation arranged with [facility] to transport with corn picker time 10:30 a.m.
--- NOTE | 2019-03-27 10:04 | NUR ---
PRN ATIVAN 2MG IM AND GEODON 20MG IM GIVEN IN RIGHT AND LEFT DELTOIDS AT THIS TIME ORDERED PER . PT WILLINGLY ACCEPTED INJECTIONS. PT DID THEN YELL OUT AFTERWARD AND STATE SHE WOULD REMOVE THESE MEDICATIONS FROM HER ARMS HERSELF. PT HAS DECLINED TO PARTICIPATE IN DISCHARGE PAPERWORK. ALL DISCHARGE PAPERWORK WITNESSED BY 2ND RN ARLEEN.LEIDY.
--- NOTE | 2019-03-27 10:28 | NUR ---
NURSE TO NURSE REPORT GIVEN TO HENOK AT [facility].
--- NOTE | 2019-03-27 10:55 | NUR ---
PT DISCHARGED AT THIS TIME TO [facility] VIA [facility] SERVICE STRETCHER WITH 2 SR. MANAGER. ALL DISCHARGE INSTRUCTIONS SENT WITH PT FOR FACILITY. ALL PERSONAL BELONGINGS WERE SENT WITH THE PT. PT LEFT THE UNIT AT 1055.
--- NOTE | 2019-03-27 12:20 | NUR ---
Patient discharged today to [facility]. Pt chose to not sign the voluntary admission document to remain in [facility]. Follow-up will be with Dr Koroma, visiting psychiatrist. Pt did participate in some of the programming and would also isolate to her room.
== END 2019-03-27 10:55 | DRG 883 ==
LOC: 3N 20:07
PROVIDERS: ADMIT Psychiatry & Neurology Psychiatry
DX: F63.81 Intermittent explosive disorder (principal); F23 Brief psychotic disorder; N39.0 Urinary tract infection, site not specified; F03.91 Unspecified dementia, unspecified severity, with behavioral disturbance; F25.9 Schizoaffective disorder, unspecified; E87.8 Other disorders of electrolyte and fluid balance, not elsewhere classified; R73.9 Hyperglycemia, unspecified; E78.2 Mixed hyperlipidemia; E55.9 Vitamin D deficiency, unspecified; E03.9 Hypothyroidism, unspecified; M62.81 Muscle weakness (generalized); N18.3 Chronic kidney disease, stage 3 (moderate); E66.9 Obesity, unspecified; Z98.51 Tubal ligation status; Z82.49 Family history of ischemic heart disease and other diseases of the circulatory system; Z80.8 Family history of malignant neoplasm of other organs or systems; Z79.82 Long term (current) use of aspirin; Z68.32 Body mass index [BMI] 32.0-32.9, adult